=== PATIENT | male | born 1980 | race Caucasian/White ===

== ENCOUNTER → 2024-11-17 14:39 | Outpatient (REF) | payer BC, SELFPAY | LOC: RAD 14:39 | PROVIDERS: ATTENDING PHYSICIAN Family Medicine | DX: N50.819 Testicular pain, unspecified (principal) | CPT/HCPCS: 76870; 93976 ==

== ENCOUNTER → 2024-12-01 16:14 | Outpatient (REF) | payer BC, SELFPAY | LOC: MRI 3T 16:14 | PROVIDERS: ATTENDING PHYSICIAN Specialist; FAMILY PHYSICIAN Family Medicine | DX: D29.21 Benign neoplasm of right testis (principal) | CPT/HCPCS: 72197; A9575 ==